=== PATIENT | female | born 1980 | race Caucasian/White ===

== ENCOUNTER 2019-03-31 06:22 | Day surgery (SDC) | payer OTHER ==
[2019-03-30 14:54] LABS: Absolute Lymphocytes (CBC) 3.9 K/uL (0.7-4.9); Absolute Monocytes 0.5 K/uL (0.1-1.3); Basophils % 1.2 % (0-1.3); Eosinophils % 1.8 % (0-4.4); Hematocrit 43.2 % (36.0-45.0); Lymphocytes % 40.6 % (15.3-44.8); MPV 8.3 fL (7.6-11.3); Monocytes % 4.9 % (3.3-12.3); RBC Red Blood Cell Count 4.92 M/uL (3.86-4.86)
--- NOTE | 2019-03-30 15:00 | RAD REPORT ---
EXAM DESCRIPTION: RAD - Chest Pa And Lat (2 Views) - 03/30/2019 2:53 pm CLINICAL HISTORY: preop Chest pain. COMPARISON: <Comparisons> FINDINGS: The lungs are clear. The heart is normal in size. No displaced fractures. IMPRESSION: No acute or concerning finding suspected.
[2019-03-30 15:15] LABS: Potassium 3.6 mmol/L (3.5-5.1)
--- OUTSIDE RECORDS SUMMARY | 2019-03-31 06:29 | XMS REPORT | Continuity of Care Document ---
:1980 Author Organization Interface Problems Problem Status Onset Classification Date Comments Source Date Reported UNK Active [place] [id number] [place] Fibroid, Active Problem 09/27/2016 [facility] uterine Medications Medication Details Route Status Patient Ordering Order Source Instructions Provider Date Fentanyl 25 microgram, Inactive Route: IV, 2015 [place] Q10Min, Dosing Weight 71.818, kg, PRN Pain Score 6-10, maximum 100 micgrograms, Start date: 09/24/16 15:45:00 CERTIFIED REGISTERED NURSE PRACTITIONER, Duration: 30 day, Stop date: 10/24/16 15:44:00 CERTIFIED REGISTERED NURSE PRACTITIONER Ondansetron 4 mg, Route: Inactive 09/24[facility] IVP, ONCE, 2015 [place] Dosing Weight 71.818, kg, PRN Nausea & Vomiting, Start date: 09/24/16 15:45:00 CERTIFIED REGISTERED NURSE PRACTITIONER Oxycodone 5 mg, Route: PO, Inactive Drug form: TAB, 2015 [place] Q4H, Dosing Weight 71.818, kg, PRN Pain Score 4-6, Start date: 09/24/16 15:45:00 CERTIFIED REGISTERED NURSE PRACTITIONER, Duration: 30 day, Stop date: 10/24/16 15:44:00 CERTIFIED REGISTERED NURSE PRACTITIONER Naloxone 0.4 mg, Route: Inactive IVP, Q2MIN, 2015 [place] Dosing Weight 71.818, kg, PRN Narcotic Reversal, Start date: 09/24/16 15:45:00 CERTIFIED REGISTERED NURSE PRACTITIONER, Duration: 8 doses or times, Stop date: Limited # of times Flumazenil 0.2 mg, Route: Inactive 09/24[facility] IVP, PRN, Dosing 2015 [place] Weight 71.818, kg, PRN Benzodiazepine Reversal, Initial dose, Start date: 09/24/16 15:45:00 CERTIFIED REGISTERED NURSE PRACTITIONER, Duration: 30 day, Stop date: 10/24/16 15:44:00 CERTIFIED REGISTERED NURSE PRACTITIONER Hydromorphone 0.5 mg, Route: Inactive 09/24[facility] IVP, Q5Min, 2015 [place] Dosing Weight 71.818, kg, PRN Pain Score 7-10, Start date: 09/24/16 15:45:00 CERTIFIED REGISTERED NURSE PRACTITIONER, Duration: 4 doses or times, Stop date: Limited # of times Ketorolac 30 mg, Route: Inactive IVP, ONCE, 2015 [place] Dosing Weight 71.818, kg, Start date: 09/24/16 15:45:00 CERTIFIED REGISTERED NURSE PRACTITIONER, Duration: 1 doses or times, Stop date: 09/24/16 15:45:00 CERTIFIED REGISTERED NURSE PRACTITIONER Labetalol 10 mg, Route: Inactive IVP, Q5Min, 2015 [place] Dosing Weight 71.818, kg, PRN Elevated BP, Start date: 09/24/16 15:45:00 CERTIFIED REGISTERED NURSE PRACTITIONER, Duration: 5 doses or times, Stop date: Limited # of times Hydralazine 10 mg, Route: Inactive IVP, Q20Min, 2015 [place] Dosing Weight 71.818, kg, PRN Elevated BP, Start date: 09/24/16 15:45:00 CERTIFIED REGISTERED NURSE PRACTITIONER, Duration: 2 doses or times, Stop date: Limited # of times metoclopramide Route: IV, Drug Inactive (ANES) form: INJ, ONCE, 2015 [place] Stop date: 09/24/16 15:30:00 CERTIFIED REGISTERED NURSE PRACTITIONER propofol (ANES) Route: IV, Drug Inactive form: INJ, ONCE, 2015 [place] Stop date: 09/24/16 15:25:00 CERTIFIED REGISTERED NURSE PRACTITIONER midazolam (ANES) Route: IV, Drug Inactive form: SOLN, 2015 [place] ONCE, Stop date: 09/24/16 15:20:00 CERTIFIED REGISTERED NURSE PRACTITIONER fentaNYL (ANES) Route: IV, Drug Inactive form: INJ, ONCE, 2015 [place] Stop date: 09/24/16 15:20:00 CERTIFIED REGISTERED NURSE PRACTITIONER meperidine Route: IV, Drug Inactive (ANES) form: INJ, ONCE, 2015 [place] Stop date: 09/24/16 15:20:00 CERTIFIED REGISTERED NURSE PRACTITIONER ondansetron Route: IV, Drug Inactive (ANES) form: INJ, ONCE, 2015 [place] Stop date: 09/24/16 15:20:00 CERTIFIED REGISTERED NURSE PRACTITIONER glycopyrrolate Route: IV, Drug Inactive (ANES) form: INJ, ONCE, 2015 [place] Stop date: 09/24/16 15:15:00 CERTIFIED REGISTERED NURSE PRACTITIONER ceFAZolin (ANES) Route: IV, Drug Inactive form: INJ, ONCE, 2015 [place] Stop date: 09/24/16 15:00:00 CERTIFIED REGISTERED NURSE PRACTITIONER LR 1000 mL INJ Route: IV, Total Inactive (ANES) Volume: 1,000, 2015 [place] Start date: 09/24/16 14:26:00 CERTIFIED REGISTERED NURSE PRACTITIONER, Stop date: 09/24/16 15:26:00 CERTIFIED REGISTERED NURSE PRACTITIONER Calcium Chloride 1,000 mL, Rate: Inactive 0.0014 MEQ/ML / 25 ml/hr, Infuse 2015 [place] Potassium over: 40 hr, Chloride 0.004 Route: IV, MEQ/ML / Sodium Dosing Weight Chloride 0.103 71.818 kg, Total MEQ/ML / Sodium Volume: 1,000, Lactate 0.028 Start date: MEQ/ML 09/24/16 Injectable 11:46:00 CERTIFIED REGISTERED NURSE PRACTITIONER, Solution Duration: 30 day, Stop date: 10/24/16 11:45:00 CERTIFIED REGISTERED NURSE PRACTITIONER Flumazenil 0.2 mg, Route: Inactive IVP, PRN, Dosing 2015 [place] Weight 69.091, kg, PRN Benzodiazepine Reversal, Initial dose, Start date: 08/27/16 11:31:00 CERTIFIED REGISTERED NURSE PRACTITIONER, Duration: 30 day, Stop date: 09/26/16 11:30:00 CERTIFIED REGISTERED NURSE PRACTITIONER Hydromorphone 0.5 mg, Route: Inactive IVP, Q5Min, 2015 [place] Dosing Weight 69.091, kg, PRN Pain Score 7-10, Start date: 08/27/16 11:31:00 CERTIFIED REGISTERED NURSE PRACTITIONER, Duration: 4 doses or times, Stop date: Limited # of times Metoprolol 1 mg, Route: Inactive IVP, Q5Min, 2015 [place] Dosing Weight 69.091, kg, PRN Other -See Comment, Start date: 08/27/16 11:31:00 CERTIFIED REGISTERED NURSE PRACTITIONER, Duration: 5 doses or times, Stop date: Limited # of times Hydralazine 10 mg, Route: Inactive IVP, Q20Min, 2015 [place] Dosing Weight 69.091, kg, PRN Elevated BP, Start date: 08/27/16 11:31:00 CERTIFIED REGISTERED NURSE PRACTITIONER, Duration: 2 doses or times, Stop date: Limited # of times Oxycodone 5 mg, Route: PO, Inactive Drug form: TAB, 2015 [place] Q4H, Dosing Weight 69.091, kg, PRN Pain Score 4-6, Start date: 08/27/16 11:31:00 CERTIFIED REGISTERED NURSE PRACTITIONER, Duration: 30 day, Stop date: 09/26/16 11:30:00 CERTIFIED REGISTERED NURSE PRACTITIONER Morphine 4 mg, Route: Inactive IVP, Q5Min, 2015 [place] Dosing Weight 69.091, kg, PRN Pain Score 7-10, Start date: 08/27/16 11:31:00 CERTIFIED REGISTERED NURSE PRACTITIONER, Duration: 3 doses or times, Stop date: Limited # of times Meperidine 12.5 mg, Route: Inactive IVP, Q30Min, 2015 [place] Dosing Weight 69.091, kg, PRN Other -See Comment, For shivering, Start date: 08/27/16 11:31:00 CERTIFIED REGISTERED NURSE PRACTITIONER, Duration: 2 doses or times, Stop date: Limited # of times Naloxone 0.4 mg, Route: Inactive IVP, Q2MIN, 2015 [place] Dosing Weight 69.091, kg, PRN Narcotic Reversal, Start date: 08/27/16 11:31:00 CERTIFIED REGISTERED NURSE PRACTITIONER, Duration: 8 doses or times, Stop date: Limited # of times Ondansetron 4 mg, Route: Inactive IVP, ONCE, 2015 [place] Dosing Weight 69.091, kg, PRN Nausea & Vomiting, Start date: 08/27/16 11:31:00 CERTIFIED REGISTERED NURSE PRACTITIONER ketOROLAC (ANES) IV, ONCE Inactive 2015 [place] propofol (ANES) Route: IV, Drug Inactive form: INJ, ONCE, 2015 [place] Stop date: 08/27/16 11:11:00 CERTIFIED REGISTERED NURSE PRACTITIONER ceFAZolin (ANES) Route: IV, Drug Inactive form: INJ, ONCE, 2015 [place] Stop date: 08/27/16 11:11:00 CERTIFIED REGISTERED NURSE PRACTITIONER lidocaine (ANES) Route: IV, Drug Inactive form: INJ, ONCE, 2015 [place] Stop date: 08/27/16 11:11:00 CERTIFIED REGISTERED NURSE PRACTITIONER ondansetron Route: IV, Drug Inactive (ANES) form: INJ, ONCE, 2015 [place] Stop date: 08/27/16 11:11:00 CERTIFIED REGISTERED NURSE PRACTITIONER dexamethasone Route: IV, Drug Inactive (ANES) form: INJ, ONCE, 2015 [place] Stop date: 08/27/16 11:11:00 CERTIFIED REGISTERED NURSE PRACTITIONER fentaNYL (ANES) Route: IV, Drug Inactive form: INJ, ONCE, 2015 [place] Stop date: 08/27/16 11:01:00 CERTIFIED REGISTERED NURSE PRACTITIONER midazolam (ANES) Route: IV, Drug Inactive form: SOLN, 2015 [place] ONCE, Stop date: 08/27/16 11:01:00 CERTIFIED REGISTERED NURSE PRACTITIONER LR 1000 mL INJ Route: IV, Total Inactive (ANES) Volume: 1,000, 2015 [place] Start date: 08/27/16 10:11:00 CERTIFIED REGISTERED NURSE PRACTITIONER, Stop date: 08/27/16 11:11:00 CERTIFIED REGISTERED NURSE PRACTITIONER Calcium Chloride 1,000 mL, Rate: Inactive 0.0014 MEQ/ML / 25 ml/hr, Infuse 2015 [place] Potassium over: 40 hr, Chloride 0.004 Route: IV, MEQ/ML / Sodium Dosing Weight Chloride 0.103 69.091 kg, Total MEQ/ML / Sodium Volume: 1,000, Lactate 0.028 Start date: MEQ/ML 08/27/16 8:48:00 Injectable CERTIFIED REGISTERED NURSE PRACTITIONER, Duration: Solution 30 day, Stop date: 09/26/16 8:47:00 CERTIFIED REGISTERED NURSE PRACTITIONER {21 (Desogestrel 1 tab, PO, Active 0.15 MG / Daily, 0 2015 [place] Ethinyl Refill(s) Estradiol 0.03 MG Oral Tablet) / 7 (Inert Ingredients 1 MG Oral Tablet) } Pack [[place]] Allergies, Adverse Reactions, Alerts Substance Category Reaction Severity Reaction Status Date Comments Source type Reported Immunizations Immunization Date Given Site Status Last Updated Comments Source Results Order Results Value Reference Date Interpretation Comments Source Name Range URINE U Preg Negative Negative CHEM 016 [place] (09/22/16 12:48 PM) URINE U Preg Negative Negative CHEM 016 [place] (08/20/16 2:47 PM) Vital Signs Vital Sign Value Date Comments Source Systolic (mm Hg) 125 09/24/2016 [facility] Diastolic (mm Hg) 93 09/24/2016 [facility] Respitory Rate 16 09/24/2016 [facility] Respitory Rate 13 09/24/2016 [facility] Systolic (mm Hg) 125 09/24/2016 [facility] Diastolic (mm Hg) 92 09/24/2016 [facility] Systolic (mm Hg) 120 09/24/2016 [facility] Diastolic (mm Hg) 85 09/24/2016 [facility] Respitory Rate 13 09/24/2016 [facility] Heart Rate 62 09/22/2016 [facility] Temperature Oral (F) 98.3 F 09/22/2016 [facility] Height 160.02 cm 09/22/2016 [facility] BMI Calculated 28.05 09/22/2016 [facility] Weight 71.818 09/22/2016 [facility] Respitory Rate 18 08/27/2016 [facility] Systolic (mm Hg) 129 08/27/2016 [facility] Diastolic (mm Hg) 88 08/27/2016 [facility] Respitory Rate 19 08/27/2016 [facility] Systolic (mm Hg) 126 08/27/2016 [facility] Diastolic (mm Hg) 77 08/27/2016 [facility] Systolic (mm Hg) 108 08/27/2016 [facility] Diastolic (mm Hg) 68 08/27/2016 [facility] Respitory Rate 17 08/27/2016 [facility] Height 157.48 cm 08/20/2016 [facility] Weight 69.091 08/20/2016 [facility] BMI Calculated 27.86 08/20/2016 [facility] Encounters Location Location Encounter Encounter Reason Attending ADM DC Status Source Details Type Number For Provider Date Date Visit [facility] [id number] Mary 08/27 08/27 [facility] Perfetto /2015 [facility] Day [id number] Mary 09/24 09/24 [facility] Perfetto /2015 [facility] Procedures Procedure Code Date Perfomer Comments Source Hysteroscopic [id number] 08/27/2016 [facility] excision of leiomyoma of uterus IVF [id number] [facility]
--- OUTSIDE RECORDS SUMMARY | 2019-03-31 06:29 | XMS REPORT | Summary of Care ---
:1980 Author Organization [facility] Address [address] [place] [id number]- Encounter HQ Tamir(ESTRADA) [id number] Date(s): 09/24/16 - 09/24/[address] [address] [phone] Discharge Disposition: Home or Self Care Attending Physician: Mary Luevano MD Referring Physician: Mary Luevano MD Vital Signs Most recent to oldest 1 2 3 [Reference Range]: Height 160.02 cm (09/22/16 12:43 PM) Temperature Oral [96.4-99.1 98.3 DegF DegF] (09/22/16 12:58 PM) Blood Pressure [90-140/60-90 125/93 mmHg 125/92 mmHg 120/85 mmHg mmHg] (09/24/16 5:15 PM) (09/24/16 4:30 PM) (09/24/16 4:15 PM) Respiratory Rate [14-20 BRMIN] 16 BRMIN 13 BRMIN 13 BRMIN (09/24/16 5:15 PM) *LOW* *LOW* (09/24/16 4:30 PM) (09/24/16 4:15 PM) Peripheral Pulse Rate [60-100 62 bpm bpm] (09/22/16 12:58 PM) Weight 71.818 kg (09/22/16 12:43 PM) Body Mass Index 28.05 m2 (09/22/16 12:43 PM) Problem List Condition Effective Dates Status Health Status Informant Fibroid, uterine(Confirmed) Active Allergies, Adverse Reactions, Alerts Substance Reaction Severity Status NKDA Active Medications ANES flumazenil 0.2 mg, Route: IVP, PRN, Dosing Weight 71.818, kg, PRN Benzodiazepine Reversal, Initial dose, Start date: 09/24/16 15:45:00 PRESSER FIRST, Duration: 30 day, Stop date: 15:44:00 PRESSER FIRST Start Date: 09/24/16 Stop Date: 09/24/16 Status: DiscontinuedANES hydrALAZINE 10 mg, Route: IVP, Q20Min, Dosing Weight 71.818, kg, PRN Elevated BP, Start date : 09/24/16 15:45:00 PRESSER FIRST, Duration: 2 doses or times, Stop date: Limited # of times Start Date: 09/24/16 Stop Date: 09/24/16 Status: DiscontinuedANES HYDROmorphone 0.5 mg, Route: IVP, Q5Min, Dosing Weight 71.818, kg, PRN Pain Score 7-10, Start date: 09/24/16 15:45:00 PRESSER FIRST, Duration: 4 doses or times, Stop date: Limited # of times Start Date: 09/24/16 Stop Date: 09/24/16 Status: DiscontinuedANES ketOROLAC 30 mg, Route: IVP, ONCE, Dosing Weight 71.818, kg, Start date: 09/24/16 15:45: 00 PRESSER FIRST, Duration: 1 doses or times, Stop date: 09/24/16 15:45:00 PRESSER FIRST Start Date: 09/24/16 Stop Date: 09/24/16 Status: DiscontinuedANES labetalol 10 mg, Route: IVP, Q5Min, Dosing Weight 71.818, kg, PRN Elevated BP, Start date : 09/24/16 15:45:00 PRESSER FIRST, Duration: 5 doses or times, Stop date: Limited # of times Start Date: 09/24/16 Stop Date: 09/24/16 Status: DiscontinuedANES naloxone 0.4 mg, Route: IVP, Q2MIN, Dosing Weight 71.818, kg, PRN Narcotic Reversal, Start date: 09/24/16 15:45:00 PRESSER FIRST, Duration: 8 doses or times, Stop date: Limited # of times Start Date: 09/24/16 Stop Date: 09/24/16 Status: DiscontinuedANES ondansetron 4 mg, Route: IVP, ONCE, Dosing Weight 71.818, kg, PRN Nausea & Vomiting, Start date: 09/24/16 15:45:00 PRESSER FIRST Start Date: 09/24/16 Stop Date: 09/24/16 Status: DiscontinuedANES oxyCODONE 5 mg, Route: PO, Drug form: TAB, Q4H, Dosing Weight 71.818, kg, PRN Pain Score 4 -6, Start date: 09/24/16 15:45:00 PRESSER FIRST, Duration: 30 day, Stop date: 10/24/16 15: 44:00 PRESSER FIRST Start Date: 09/24/16 Stop Date: 09/24/16 Status: DiscontinuedceFAZolin (ANES) Route: IV, Drug form: INJ, ONCE, Stop date: 09/24/16 15:00:00 PRESSER FIRST Start Date: 09/24/16 Stop Date: 09/24/16 Status: CompletedfentaNYL (ANES) Route: IV, Drug form: INJ, ONCE, Stop date: 09/24/16 15:20:00 PRESSER FIRST Start Date: 09/24/16 Stop Date: 09/24/16 Status: CompletedfentaNYL () IV solution 50 microgram /mL 25 microgram, Route: IV, Q10Min, Dosing Weight 71.818, kg, PRN Pain Score 6-10, maximum 100 micgrograms, Start date: 09/24/16 15:45:00 PRESSER FIRST, Duration: 30 day, Stop date: 10/24/16 15:44:00 PRESSER FIRST Start Date: 09/24/16 Stop Date: 09/24/16 Status: Discontinuedglycopyrrolate (ANES) Route: IV, Drug form: INJ, ONCE, Stop date: 09/24/16 15:15:00 PRESSER FIRST Start Date: 09/24/16 Stop Date: 09/24/16 Status: CompletedLactated Ringers 1,000 mL 1,000 mL, Rate: 25 ml/hr, Infuse over: 40 hr, Route: IV, Dosing Weight 71.818 kg , Total Volume: 1,000, Start date: 09/24/16 11:46:00 PRESSER FIRST, Duration: 30 day, Stop date: 10/24/16 11:45:00 PRESSER FIRST Start Date: 09/24/16 Stop Date: 09/24/16 Status: DiscontinuedLR 1000 mL INJ (ANES) Route: IV, Total Volume: 1,000, Start date: 09/24/16 14:26:00 PRESSER FIRST, Stop date: 15:26:00 PRESSER FIRST Start Date: 09/24/16 Stop Date: 09/24/16 Status: Completedmeperidine (ANES) Route: IV, Drug form: INJ, ONCE, Stop date: 09/24/16 15:20:00 PRESSER FIRST Start Date: 09/24/16 Stop Date: 09/24/16 Status: Completedmetoclopramide (ANES) Route: IV, Drug form: INJ, ONCE, Stop date: 09/24/16 15:30:00 PRESSER FIRST Start Date: 09/24/16 Stop Date: 09/24/16 Status: Completedmidazolam (ANES) Route: IV, Drug form: SOLN, ONCE, Stop date: 09/24/16 15:20:00 PRESSER FIRST Start Date: 09/24/16 Stop Date: 09/24/16 Status: Completedondansetron (ANES) Route: IV, Drug form: INJ, ONCE, Stop date: 09/24/16 15:20:00 PRESSER FIRST Start Date: 09/24/16 Stop Date: 09/24/16 Status: Completedpropofol (ANES) Route: IV, Drug form: INJ, ONCE, Stop date: 09/24/16 15:25:00 PRESSER FIRST Start Date: 09/24/16 Stop Date: 09/24/16 Status: Completed Results URINE CHEM Most recent to oldest [Reference Range]: 1 U Preg [Negative] Negative (09/22/16 12:48 PM) Immunizations No data available for this section Procedures Procedure Date Related Diagnosis Body Site Hysteroscopic excision of leiomyoma of uterus 08/27/16 IVF Social History Social History Type Response Substance Abuse Use: None. Alcohol Current, Type Wine. Frequency: 3-5 times per week. Smoking Status Never smoker; Previous treatment: None; Ready to change: No; Concerns about tobacco use in household: No; Exposure to Tobacco Smoke None; Cigarette Smoking Last 365 Days No; Reg Smoking Cessation Counseling No Assessment and Plan No data available for this section
--- OUTSIDE RECORDS SUMMARY | 2019-03-31 06:29 | XMS REPORT ---
:1980 Author Organization [facility] Address [address] [place] [address] Dr. Locke [address] [place] [id number] Care Team Providers Name Role Phone Unavailable Unavailable Unavailable Problems This patient has no known problems. Allergies, Adverse Reactions, Alerts This patient has no known allergies or adverse reactions. Medications This patient has no known medications.
--- OUTSIDE RECORDS SUMMARY | 2019-03-31 06:29 | XMS REPORT | Summary of Care ---
:1980 Author Organization [facility] Address [id number] [place] [phone] Encounter HQ Tamir(ESTRADA) [id number] Date(s): 08/27/16 - 08/27/16 [facility] [id number] [place] [phone] Discharge Disposition: Home or Self Care Attending Physician: Mary Luevano MD Referring Physician: Mary Luevano MD Vital Signs Most recent to oldest 1 2 3 4 [Reference Range]: Height 157.48 cm (08/20/16 2:38 PM) Blood Pressure 129/88 mmHg 126/77 mmHg 108/68 mmHg 108/68 mmHg [90-140/60-90 mmHg] (08/27/16 1:09 PM) (08/27/16 12:05 PM) (08/27/16 12:00 PM) (08/27/16 12:00 PM) Respiratory Rate 18 BRMIN 19 BRMIN 17 BRMIN 17 BRMIN [14-20 BRMIN] (08/27/16 1:09 PM) (08/27/16 12:05 PM) (08/27/16 12:00 PM) ( 08/27/16 12:00 PM) Weight 69.091 kg (08/20/16 2:38 PM) Body Mass Index 27.86 m2 (08/20/16 2:38 PM) Problem List Condition Effective Dates Status Health Status Informant Fibroid, uterine(Confirmed) Active Allergies, Adverse Reactions, Alerts Substance Reaction Severity Status NKDA Active Medications ANES flumazenil 0.2 mg, Route: IVP, PRN, Dosing Weight 69.091, kg, PRN Benzodiazepine Reversal, Initial dose, Start date: 08/27/16 11:31:00 CLERICAL PROOFREADER, Duration: 30 day, Stop date: 11:30:00 CLERICAL PROOFREADER Start Date: 08/27/16 Stop Date: 08/27/16 Status: DiscontinuedANES hydrALAZINE 10 mg, Route: IVP, Q20Min, Dosing Weight 69.091, kg, PRN Elevated BP, Start date : 08/27/16 11:31:00 CLERICAL PROOFREADER, Duration: 2 doses or times, Stop date: Limited # of times Start Date: 08/27/16 Stop Date: 08/27/16 Status: DiscontinuedANES HYDROmorphone 0.5 mg, Route: IVP, Q5Min, Dosing Weight 69.091, kg, PRN Pain Score 7-10, Start date: 08/27/16 11:31:00 CLERICAL PROOFREADER, Duration: 4 doses or times, Stop date: Limited # of times Start Date: 08/27/16 Stop Date: 08/27/16 Status: DiscontinuedANES meperidine 12.5 mg, Route: IVP, Q30Min, Dosing Weight 69.091, kg, PRN Other -See Comment, For shivering, Start date: 08/27/16 11:31:00 CLERICAL PROOFREADER, Duration: 2 doses or times, Stop date: Limited # of times Start Date: 08/27/16 Stop Date: 08/27/16 Status: DiscontinuedANES metoprolol 1 mg, Route: IVP, Q5Min, Dosing Weight 69.091, kg, PRN Other -See Comment, Start date: 08/27/16 11:31:00 CLERICAL PROOFREADER, Duration: 5 doses or times, Stop date: Limited # of times Start Date: 08/27/16 Stop Date: 08/27/16 Status: DiscontinuedANES morphine Sulfate 4 mg, Route: IVP, Q5Min, Dosing Weight 69.091, kg, PRN Pain Score 7-10, Start date: 08/27/16 11:31:00 CLERICAL PROOFREADER, Duration: 3 doses or times, Stop date: Limited # of times Start Date: 08/27/16 Stop Date: 08/27/16 Status: DiscontinuedANES morphine Sulfate 2 mg, Route: IVP, Q5Min, Dosing Weight 69.091, kg, PRN Pain Score 4-6, Start date: 08/27/16 11:31:00CST, Duration: 5 doses or times, Stop date: Limited # of times Start Date: 08/27/16 Stop Date: 08/27/16 Status: DiscontinuedANES naloxone 0.4 mg, Route: IVP, Q2MIN, Dosing Weight 69.091, kg, PRN Narcotic Reversal, Start date: 08/27/16 11:31:00 CLERICAL PROOFREADER, Duration: 8 doses or times, Stop date: Limited # of times Start Date: 08/27/16 Stop Date: 08/27/16 Status: DiscontinuedANES ondansetron 4 mg, Route: IVP, ONCE, Dosing Weight 69.091, kg, PRN Nausea & Vomiting, Start date: 08/27/16 11:31:00 CLERICAL PROOFREADER Start Date: 08/27/16 Stop Date: 08/27/16 Status: CompletedANES oxyCODONE 5 mg, Route: PO, Drug form: TAB, Q4H, Dosing Weight 69.091, kg, PRN Pain Score 4 -6, Start date: 08/27/16 11:31:00 CLERICAL PROOFREADER, Duration: 30 day, Stop date: 09/26/16 11: 30:00 CLERICAL PROOFREADER Start Date: 08/27/16 Stop Date: 08/27/16 Status: DiscontinuedceFAZolin (ANES) Route: IV, Drug form: INJ, ONCE, Stop date: 08/27/16 11:11:00 CLERICAL PROOFREADER Start Date: 08/27/16 Stop Date: 08/27/16 Status: Completeddexamethasone (ANES) Route: IV, Drug form: INJ, ONCE, Stop date: 08/27/16 11:11:00 CLERICAL PROOFREADER Start Date: 08/27/16 Stop Date: 08/27/16 Status: CompletedEmoquette oral tablet 1 tab, PO, Daily, 0 Refill(s) Start Date: 08/20/16 Status: OrderedfentaNYL (ANES) Route: IV, Drug form: INJ, ONCE, Stop date: 08/27/16 11:01:00 CLERICAL PROOFREADER Start Date: 08/27/16 Stop Date: 08/27/16 Status: CompletedketOROLAC (ANES) IV, ONCE Start Date: 08/27/16 Stop Date: 08/27/16 Status: CompletedLactated Ringers Injection IV 1000 mL 1,000 mL, Rate: 25 ml/hr, Infuse over: 40 hr, Route: IV, Dosing Weight 69.091 kg , Total Volume: 1,000, Start date: 08/27/16 8:48:00 CLERICAL PROOFREADER, Duration: 30 day, Stop date: 09/26/16 8:47:00 CLERICAL PROOFREADER Start Date: 08/27/16 Stop Date: 08/27/16 Status: Discontinuedlidocaine (ANES) Route: IV, Drug form: INJ, ONCE, Stop date: 08/27/16 11:11:00 CLERICAL PROOFREADER Start Date: 08/27/16 Stop Date: 08/27/16 Status: CompletedLR 1000 mL INJ (ANES) Route: IV, Total Volume: 1,000, Start date: 08/27/16 10:11:00 CLERICAL PROOFREADER, Stop date: 11:11:00 CLERICAL PROOFREADER Start Date: 08/27/16 Stop Date: 08/27/16 Status: Completedmidazolam (ANES) Route: IV, Drug form: SOLN, ONCE, Stop date: 08/27/16 11:01:00 CLERICAL PROOFREADER Start Date: 08/27/16 Stop Date: 08/27/16 Status: Completedondansetron (ANES) Route: IV, Drug form: INJ, ONCE, Stop date: 08/27/16 11:11:00 CLERICAL PROOFREADER Start Date: 08/27/16 Stop Date: 08/27/16 Status: Completedpropofol (ANES) Route: IV, Drug form: INJ, ONCE, Stop date: 08/27/16 11:11:00 CLERICAL PROOFREADER Start Date: 08/27/16 Stop Date: 08/27/16 Status: Completed Results URINE CHEM Most recent to oldest [Reference Range]: 1 U Preg [Negative] Negative (08/20/16 2:47 PM) Immunizations No data available for this section Procedures Procedure Date Related Diagnosis Body Site IVF Social History Social History Type Response Smoking Status Never smoker; Previous treatment: None; Ready to change: No; Concerns about tobacco use in household: No; Exposure to Tobacco Smoke None; Cigarette Smoking Last 365 Days No; Reg Smoking Cessation Counseling No Assessment and Plan Extracted from: Title: Clinical Document Author: Mary Luevano MD Date: 08/27/16 Operative Report: Pre-op Diagnosis: Submucosal and Intramural fibroids Post-op Diagnosis: Same Procedure: Hysteroscopic resection of submucosal fibroid, EUA, PCB, Cook Balloon stent and Ultrasound guidance Surgeon: Mary Luevano MD Property Management Assistant: N/A Anesthesia: GETA Specimens: Uterine fibroid EBL: 20cc Fluid deficit: 2100cc NS Complications: None, quick fluid loss. No identified perforation, but about 200cc fluid in abdomen at conclusion of case (ULS) Significant findings: 3cm fibroid in cavity.>50% was removed from the uterus. Small uterine remnant remains.Normal cavity shape and b/l tubal ostia. Cook balloon left in place with 8ml NS.
[2019-03-31] MEDS ORDERED: Ringers Lactate 1,000 ML IV ONE (06:53)
[2019-03-31] MEDS: CEFAZOLIN/SWI 1gm 1 GM/10 ML SYR ONE ×3 (07:13→07:45)
[2019-03-31] MEDS ORDERED: PROPOFOL 200 MG/20 ML VIAL IV ONE (07:30)
[2019-03-31] MEDS ORDERED: LIDOCAINE 2% MPF 5 ML VIAL ONE (07:30)
[2019-03-31] MEDS ORDERED: DEXAMETHASONE 10 MG/ML VIAL ONE (07:30)
[2019-03-31] MEDS ORDERED: FENTANYL CITR 100 MCG/2 ML ONE (07:30)
[2019-03-31] MEDS ORDERED: MIDAZOLAM HCL 2 MG/2 ML INJ ONE (07:30)
--- NOTE | 2019-03-31 08:05 | EKG ---
Test Date: 2019-03-30 Test Time: 14:38:12 Supervisor Plate Forming: TAMMI MEASUREMENT RESULTS: Intervals: Rate: 70 CO: 156 QRSD: 74 QT: 388 QTc: 419 [place]: P: 55 CO: 156 QRS: 38 T: 53 INTERPRETIVE STATEMENTS: Normal sinus rhythm Normal ECG No previous ECG available for comparison Electronically Signed On 03-31-19 08:04:42 CDT by Xavier Ku
[2019-03-31] MEDS ORDERED: KETOROLAC 30 MG/ML INJ ONE (08:25)
--- NOTE | 2019-03-31 08:28 | P.BOP ---
Preoperative diagnosis: infected left breast mass, cellultis, abscess Postoperative diagnosis: same Primary procedure: LEft breast lumpectomy with abscess drainage Tourist Home Keeper: SHELLY VICK (JoseZak) Estimated blood loss: <10cc Specimen: culture, inflammatory mass for biopsy Findings: see dictation Anesthesia: General Complications: None Transferred to: Recovery Room Condition: Good
[2019-03-31] MEDS: MORPHINE 4 MG/ML SYR ONE ×2 (08:48→08:54)
[2019-03-31] MEDS ORDERED: CODEINE 30MG/APAP 300MG TAB ONE (09:35)
[2019-03-31] MEDS ORDERED: ONDANSETRON 4 MG/2 ML VIAL ONE (09:36)
[2019-03-31 10:24] VITALS: BP 143/84; TEMP 97.8; O2SAT 98
--- NOTE | 2019-03-31 19:10 | OP ---
Date of Procedure: 03/31/2019 Surgeon: Fabián Ponce MD Pricing Coordinator: Isabel Luevano. Preoperative Diagnosis: Infected left breast mass. Postoperative Diagnosis: Infected left breast mass. Procedure: Left breast lumpectomy with abscess drainage. Specimen: Culture of inflammatory mass for biopsy, that includes also the skin. Anesthesia: General plus local. Findings: The patient has area of redness and skin redness too to the area. I did not see any sebac eous content. I saw some purulent discharge, goes deep in the breast tissue to about 1.5 to 2 cm. T he fascia is not involved. Complications: None. Indications: This is a case of a 38-year-old patient, who has a complicated picture, many moving par ts with superimposed infection. She has history in the mother of inflammatory breast cancer that loo ked like an infection, so we understand why she is so concerned about this. The mom also had mastect jonh, but still developed cancer in the opposite breast, a different kind of cancer in the breast, and she did not survive that event. This was in the perimenopausal area. Now this patient comes with d ifferent setup. She has ultrasounds and mammogram done in another institution, and it shows this mas s that [facility] described as sebaceous cyst, although the skin outside does not seem to be the typical se baceous cyst with the opening and the drainage there. The skin shows redness and warmth consistent w ith an abscess underneath. She says that at one point, she was trying to pop a pimple from that area and developed the redness, but the sebaceous cyst that the [facility] had described in the skin, unless it was just different, I did not see it, so that triggered suspicious for once again inflammatory breas t cancer too, so I agreed with her that biopsy should be done, but at the same time and we have an in fection. She has been on 7 days of antibiotics really with no improvement, so she has an abscess in that area, and we have to take care of that, except she also has a lesion and the other part of the b reast that will need a core biopsy, and she also have enlarged lymph node in the axilla on the same s lizett, and she has also some calcifications that although not very suspicious at this time, cannot be r ule out as something that we should be concerned. So for obvious reasons, she preferred the breast t o be removed, but we have once again the area of the abscess and infection, so we going to address th e other issues, but right now the infection is very important first, not only we are going to drain t he infection, but also we are also going to send the biopsy with that and the part of the skin to rul e out inflammatory breast cancer. While we are healing from this infection, we might have to do the core biopsy of the other lesion she has in her breast. With this infection even though we have an op en wound at least we have an open wound on the other side of the breast that is not infected compared to right now, we trying to do core biopsy at the same time. We discussed this for more than an hour in my office a few hours ago trying to put some sequenced event that makes sense and is the best for her, so we brought her this morning for incision and drainage of the abscess with lumpectomy. The b enefits, alternatives, and risks were fully explained to the patient, which include but are not limit ed to infection, bleeding, damage to adjacent structures, anesthesia complication, nonhealing wound, UT, and even . She also understands this may not relieve any symptoms. She might need more tal n one surgical intervention. She understood, signed a consent. The area of concern was marked by me and the patient in the holding room. Although, the redness is obvious and increased temperature and the induration. Procedure In Detail: The patient was brought to the operating room, placed in supine position. Anes thesia was done without complication. The left breast was prepped and draped in usual sterile fashio n. After that, we proceeded to make a wedge incision to include part of the skin. Incision was erickson ied down to about 2 cm down into the breast, we found some hard indurated tissue underneath. The pradip ology of that is unknown. Could be part of the inflammatory, could be part of the infection, althoug h once again we trying to rule out here some other neoplasia if we can at the same time. Some pus wa s found under the skin but I did not see any good, firm, big sebaceous cyst. I see the pus. I see t he pocket. I see the inflammatory mass which is fatty tissue, hard. So we removed all that area and sent that and packed the area with wet-to-dry dressing after hemostasis and local anesthetic was michelle lied. The patient tolerated the procedure very well. The patient was sent to recovery room in sta e condition. MELANY/JANN Voice ID: [id number] Report ID: [id number]
--- NOTE | 2019-03-31 19:10 | DS ---
Date of Discharge: 03/31/2019 Diagnosis: Infected left breast mass. Procedures: Left breast lumpectomy with abscess drainage. Disposition: Home. Discharge Instructions: Wet-to-dry dressing in normal saline daily. Follow up in my office early nex t week. Continue with antibiotics Bactrim DS p.o. b.i.d., and Tylenol No. 3 for pain. MELANY/JANN Voice ID: [id number] Report ID: [id number]
== END 2019-03-31 10:20 | disposition home or self-care (01) ==
LOC: OR 06:22
PROVIDERS: ATTEND Surgery
PROC: 0HBU0ZX Excision of Left Breast, Open Approach, Diagnostic (ICD-10-PCS; principal; 2019-03-31 07:30)
DX: N60.92 Unspecified benign mammary dysplasia of left breast (principal); N60.22 Fibroadenosis of left breast; N60.82 Other benign mammary dysplasias of left breast; N60.42 Mammary duct ectasia of left breast; L92.8 Other granulomatous disorders of the skin and subcutaneous tissue; N61.1 Abscess of the breast and nipple
CPT/HCPCS: 36415; 71046; 80048; 84703; 85025; 87070; 87075; 87077; 87186; 87205; 88304; 88305; 88312; 93005; J0690; J1100; J2250; J2405; J2704; J3010